=== PATIENT | male | born 2000 | race Caucasian/White ===

== ENCOUNTER 2023-05-20 11:29 | Emergency (ER) | payer OTHER, SELFPAY ==
[2023-05-20 11:36] VITALS: BP 129/66; PULSE 73; RESP 16; TEMP 36.6; O2SAT 100; BMI 24.4
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
== END 2023-05-20 12:32 | disposition home or self-care (01) ==
PROVIDERS: Emergency Provider Physician Assistant
DX: M54.50 Low back pain, unspecified (principal); M54.2 Cervicalgia; V89.2XXA Person injured in unspecified motor-vehicle accident, traffic, initial encounter
CPT/HCPCS: 99283